=== PATIENT | female | born 1940 | race Caucasian/White ===

== ENCOUNTER 2020-01-04 22:46 | Emergency (ER) | payer OTHER ==
[~2020-01-04] VITALS: Ht 167.6 cm; Wt 90.7 kg
--- NOTE | 2020-01-04 22:49 | NUR ---
PT AAOX3. [id number] FROM HOME FOR BLE PAIN AFTER SLIP/FALL X3DAYS AGO, FELL FROM BED, -LOC. PT WAS SEEN AT [place], XRAY'S WERE NEGATIVE. PT PLACED IN BED 3 ON MONITOR AND PULSE OX. VSS. AT BEDSIDE FOR EVAL. AWAITING ORDERS.
--- NOTE | 2020-01-04 23:21 | NUR ---
CALLED [facility], REQUESTED SNAPSHOT, AWAITING MD CALL BACK
--- NOTE | 2020-01-04 23:40 | NUR ---
PT'S FRIEND HERO COLUNGA
[2020-01-04] MEDS ORDERED: HYDROCODONE/APAP 5/325MG TABLET ONE (23:45)
[2020-01-04 23:46] LABS: BASOPHILS # (AUTO) 0.1 /CMM (0.0-0.2); BASOPHILS % (AUTO) 0.4 % (0.0-2.0); EOSINOPHILS % (AUTO) 0.1 % (0.0-6.0); HEMATOCRIT 33 % (33-45); HEMOGLOBIN 10.2 g/dL (11.5-14.8); LYMPHOCYTES # (AUTO) 1.1 /CMM (0.8-4.8); LYMPHOCYTES % (AUTO) 6.9 % (20.0-44.0); MEAN CORPUSCULAR HGB CONC 31 g/dl (31.0-36.0); MEAN CORPUSCULAR VOLUME 76 fL (82-100); MONOCYTES # (AUTO) 1.5 /CMM (0.1-1.30); MONOCYTES % (AUTO) 9.7 % (2.0-12.0); NEUTROPHILS % (AUTO) 82.9 % (43.0-81.0); PLATELET COUNT (AUTO) 559 /CMM (150-450); RED BLOOD CELL COUNT(AUTO) 4.36 MIL/uL (4.0-5.2); WHITE BLOOD COUNT (AUTO) 15.7 K/uL (4.3-11.0)
[2020-01-04 23:59] LABS: CALCIUM, SERUM 9.4 mg/dL (8.5-10.1); CARBON DIOXIDE 27 mmol/L (21-32); CHLORIDE 97 mmol/L (98-107); CREATININE 1.2 mg/dL (0.6-1.3); GLUCOSE 282 mg/dL (74-106); POTASSIUM 3.9 mmol/L (3.5-5.1); SODIUM SERUM 132 mmol/L (136-145); UREA NITROGEN, BLOOD 16 mg/dL (7-18)
[2020-01-05] MEDS ORDERED: IV NS 0.9% 1,000 ML BAG IV ONE
[2020-01-05] MEDS ORDERED: HYDROCODONE/APAP 5/325MG TABLET PO ONE
[2020-01-05 00:04] LABS: ALANINE AMINOTRANSFERASE 21 U/L (12-78); ALBUMIN 2.9 g/dL (3.4-5.0); ALKALINE PHOSPHATASE 128 U/L (46-116); ASPARTATE AMINOTRANSFERASE 12 U/L (15-37); BILIRUBIN,DIRECT 0.2 mg/dL (0.0-0.2); BILIRUBIN,TOTAL 0.4 mg/dL (0.2-1.0); TOTAL PROTEIN, SERUM 8.4 g/dL (6.4-8.2)
[2020-01-05 00:41] LABS: APPEARANCE,URINE Clear (CLEAR); BILIRUBIN,URINE Negative (NEGATIVE); BLOOD, URINE Negative Ery/uL (NEGATIVE); COLOR,URINE Yellow (YELLOW); LEUKOCYTE ESTERASE ,URINE Negative (NEGATIVE); NITRITE, URINE Negative (NEGATIVE); PROTEIN,URINE 100 mg/dl (NEGATIVE); UGLUCOSE 100 MG/DL mg/dL (NEGATIVE)
--- NOTE | 2020-01-05 00:43 | NUR ---
URINE COLLECTED AND SENT TO LAB
--- NOTE | 2020-01-05 00:49 | NUR ---
URINE COLLECTED AND SENT TO LAB
[2020-01-05 01:23] VITALS: BP 142/69
[2020-01-05 01:34] LABS: BACTERIA,URINE None seen /HPF (None Seen); MUCUS,URINE Few /LPF (None Seen); RBC,URINE 0-2 /HPF (0-2); SQUAMOUS EPITHELIAL CELL,UR Few /HPF (None Seen); URINE AMORPHOUS URATE Few /HPF (None Seen); WBC,URINE 0-2 /HPF (0-3)
--- NOTE | 2020-01-05 01:51 | NUR ---
Patient is resting comfortably in bed. Easily aroused. VSS. Pt provided with blankets.
[2020-01-05] MEDS ORDERED: MORPHINE SULFATE INJ 2 MG/ML DISP.SYRIN ONE (02:13)
--- NOTE | 2020-01-05 02:17 | NUR ---
Pt accepted to [facility] by Dr Burroughs. # for report [phone]. ETA [id number]
[2020-01-05] MEDS ORDERED: MORPHINE SULFATE INJ 2 MG/ML DISP.SYRIN IV ONE (02:30)
--- NOTE | 2020-01-05 02:48 | NUR ---
REPROT GIVEN TO [facility] RESTREPO FOR JEAN-PIERRE
--- NOTE | 2020-01-05 03:40 | NUR ---
PT TRANSFERED TO [facility]
== END 2020-01-05 03:43 | disposition short-term general hospital (02) ==
LOC: ER 22:49
DX: R26.2 Difficulty in walking, not elsewhere classified (principal); F03.90 Unspecified dementia, unspecified severity, without behavioral disturbance, psychotic disturbance, mood disturbance, and anxiety; D72.829 Elevated white blood cell count, unspecified; M79.605 Pain in left leg; M79.604 Pain in right leg; Z91.81 History of falling; Z20.828 Contact with and (suspected) exposure to other viral communicable diseases
CPT/HCPCS: 36415; 71045; 72192; 80048; 80076; 81001; 84484; 85025; 85730; 87426; 93005; 96361; 96374; 99285; C9803; J2270; J7030; 81000-TC